=== PATIENT | male | born 1965 | race Caucasian/White ===

== ENCOUNTER 2020-10-12 08:23 | Emergency (ER) | payer BC ==
--- NOTE | 2020-10-12 08:58 | EDM.PDOC ---
ED HPI GENERAL MEDICAL PROBLEM - General Chief Complaint: Chest Pain Stated Complaint: CHEST PAIN /LIGHT HEADED Time Seen by Provider: 10/12/20 08:53 Source of Information: Reports: Patient History Limitations: Reports: No Limitations - History of Present Illness INITIAL COMMENTS - FREE TEXT/NARRATIVE: 55-year-old male attends the ED complaining of diffuse anterior chest pains which he is able to point out with his fingertips indicating that it is in the chest wall. No associated shortness of breath. He did have some associated dizziness lightheadedness but no real syncopal event. He has ate and drank fairly well this morning. He takes no medications. He is quite anxious. Denies cough sputum production fever chills nausea or vomiting. No concerns about COVID-19 illness. Blood pressure has been running high for the last several years and is considered borderline hypertensive. He is a non-smoker. Onset: Today, Sudden Onset Date: 10/12/20 Onset Time: 07:40 Duration: Minutes: Location: Reports: Generalized (Lightheaded mildly dizzy mildly weak.) Quality: Reports: Other Severity: Mild (No pain.) Improves with: Reports: None Worsens with: Reports: None Context: Denies: Activity, Exercise, Lifting, Sick Contact, Trauma, Other Associated Symptoms: Reports: Shortness of Breath. Denies: No Other Symptoms, Confusion, Chest Pain, Cough, cough w sputum, Diaphoresis, Fever/Chills, Headaches, Loss of Appetite, Malaise, Nausea/Vomiting, Rash, Seizure, Syncope, Weakness Treatments REGULATORY SERVICES CONSULTANT: Reports: Other (see below) (Subjective shortness of breath this morning. None.) Chest Pain Score (Numeric/FACES): 2 - Related Data Allergies Allergy/AdvReac Type Severity Reaction Status Date / Time No Known Allergies Allergy Verified 10/12/20 08:32 Home Meds: Home Meds Multivitamin with Minerals [Multiple Vitamin] 1 tab PO DAILY 10/12/20 [History] Past Medical History HEENT History: Reports: Impaired Vision Other HEENT History: wears eyeglasses. Cardiovascular History: Reports: Other (See Below) Other Cardiovascular History: states is "pre hypertension." Genitourinary History: Reports: Renal Calculus Neurological History: Reports: Headaches, Chronic (Frequent headaches. 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 and wondered if his occipital prominences were normal.) Psychiatric History: Reports: Anxiety - Infectious Disease History Infectious Disease History: Reports: Chicken Pox Social & Family History - Tobacco Use Tobacco Use Status *Q: Never Tobacco User Second Hand Smoke Exposure: No - Caffeine Use Caffeine Use: Reports: Coffee - Recreational Drug Use Recreational Drug Use: No - Living Situation & Occupation Occupation: Employed ED ROS GENERAL - Review of Systems Review Of Systems: See Below Constitutional: Denies: Fever, Chills, Malaise, Weakness, Fatigue, Decreased Appetite, Weight Loss HEENT: Reports: Glasses Respiratory: Reports: Shortness of Breath. Denies: Wheezing, Pleuritic Chest Pain, Cough, Sputum Cardiovascular: Reports: Chest Pain (Subjective dyspnea this morning.), Blood Pressure Problem ( [place] chest pains for many years seem to be a little worse today.), Lightheadedness. Denies: Claudication, Dyspnea on Exertion, Edema, Orthopnea ( He has been told he has borderline hypertension in the past.), Palpitations, PND, Syncope Endocrine: Reports: No Symptoms GI/Abdominal: Reports: Constipation (LC might be constipated.) : Reports: No Symptoms Musculoskeletal: Reports: No Symptoms Skin: Reports: No Symptoms Neurological: Reports: Headache (Gets a lot of headaches) Psychiatric: Reports: Anxiety Hematologic/Lymphatic: Reports: No Symptoms Immunologic: Reports: No Symptoms ED EXAM, GENERAL - Physical Exam Exam: See Below Exam Limited By: No Limitations General Appearance: Alert, WD/WN, Anxious, Mild Distress, Other (Temperature is 36.8 with a heart rate of 80 and sinus respiratory to is 12 with O2 sats of 99% room air BP initially is mildly elevated 142/90. Subsequently it has come down to 139/91) Eye Exam: Bilateral Eye: Normal Inspection (No scleral icterus or blepharal pallor.), PERRL Throat/Mouth: Normal Inspection, Normal Lips, Normal Teeth, Normal Gums, Normal Oropharynx Head: Atraumatic, Normocephalic, Sinus Tenderness Neck: Normal Inspection, Supple, Non-Tender, Full Range of Motion. No: Carotid Bruit, Lymphadenopathy (L), Lymphadenopathy (R), Thyromegaly Respiratory/Chest: No Respiratory Distress, Lungs Clear, Normal Breath Sounds, No Accessory Muscle Use Cardiovascular: Normal Peripheral Pulses, Regular Rate, Rhythm, No Edema, No Gallop, No Murmur, No Rub Peripheral Pulses: 3+: Carotid (L), Carotid (R), Posterior Tibial (L), Posterior Tibial (R), Dorsalis Pedis (L), Dorsalis Pedis (R) GI/Abdominal: Normal Bowel Sounds, Soft, Non-Tender, No Organomegaly, No Abnormal Bruit, No Mass, Pelvis Stable, Other Back Exam: Normal Inspection, Full Range of Motion. No: CVA Tenderness (L), CVA Tenderness (R) Extremities: Normal Inspection, Normal Range of Motion, Non-Tender, No Pedal Edema Neurological: Alert, Oriented, CN II-XII Intact, Normal Cognition, Normal Gait, Normal Reflexes Psychiatric: Anxious Skin Exam: Warm, Dry, Intact (Moderately anxious.), Normal Color, No Rash #1 Interpretation EKG Date: 10/12/20 Time: 08:57 Rate (Beats/Min): 70 [place]: Normal P-Wave: Enlarged (Consider left atrial hypertrophy pattern) QRS: Other (Early R wave transition consider septal hypertrophy pattern) ST-T: Other (T wave flattening aVF nonspecific finding) QT: Normal EKG Interpretation Comments: Borderline ECG Course - Vital Signs Last Recorded V/S: Last Vital Signs Temp 36.8 C 10/12/20 10:20 Pulse 72 10/12/20 10:20 Resp 20 10/12/20 10:20 BP 126/89 10/12/20 10:20 Pulse Ox 97 10/12/20 10:20 - Orders/Labs/Meds Labs: Laboratory Tests 10/12/20 10/12/20 Range/Units 09:10 09:11 WBC 4.24 (4.23-9.07) K/mm3 RBC 5.07 (4.63-6.08) M/mm3 Hgb 15.8 (13.7-17.5) gm/dl Hct 46.2 (40.1-51.0) % MCV 91.1 (79.0-92.2) fl MCH 31.2 (25.7-32.2) pg MCHC 34.2 (32.2-35.5) g/dl RDW Std Deviation 41.9 (35.1-43.9) fL Plt Count 188 (163-337) K/mm3 MPV 9.6 (9.4-12.3) fl Neut % (Auto) 69.0 H (34.0-67.9) % Lymph % (Auto) 22.2 (21.8-53.1) % [place] % (Auto) 6.4 (5.3-12.2) % Eos % (Auto) 1.7 (0.8-7.0) Baso % (Auto) 0.5 (0.1-1.2) % Neut # (Auto) 2.93 (1.78-5.38) K/mm3 Lymph # (Auto) 0.94 L (1.32-3.57) K/mm3 [place] # (Auto) 0.27 L (0.30-0.82) K/mm3 Eos # (Auto) 0.07 (0.04-0.54) K/mm3 Baso # (Auto) 0.02 (0.01-0.08) K/mm3 Sodium 142 (136-145) mEq/L Potassium 3.8 (3.5-5.1) mEq/L Chloride 108 H (98-107) mEq/L Carbon Dioxide 24 (21-32) mEq/L Anion Gap 13.8 (5-15) BUN 17 (7-18) mg/dL Creatinine 1.0 (0.7-1.3) mg/dL Est Cr Clr Drug Dosing 93.22 mL/min Estimated GFR (MDRD) > 60 (>60) mL/min BUN/Creatinine Ratio 17.0 (14-18) Glucose 103 (74-106) mg/dL Calcium 8.9 (8.5-10.1) mg/dL Magnesium 2.0 (1.8-2.4) mg/dl Total Bilirubin 0.4 (0.2-1.0) mg/dL AST 19 (15-37) U/L ALT 33 (16-63) U/L Alkaline Phosphatase 66 (46-116) U/L Troponin I < 0.017 (0.00-0.056) ng/mL C-Reactive Protein 0.2 (<1.0) mg/dL Total Protein 7.1 (6.4-8.2) g/dl Albumin 3.9 (3.4-5.0) g/dl Globulin 3.2 gm/dL Albumin/Globulin Ratio 1.2 (1-2) TSH 3rd Generation 0.461 (0.358-3.74) uIU/mL - Radiology Interpretation Free Text/Narrative:: 55-year-old male presents to the ED complaining of feeling lightheaded dizzy and just not right this morning. He has taken some chocolate 5 inch and some other candies this morning. Did not have a formal meal. Has drank lots of water and had a cup of coffee. He reports he started 6 different medications from [facility] which include mostly vitamins but he has not taken them yet today usually takes them at noon hour. Concerned about daily headaches. Denies shortness of breath although subjectively he feels mildly dyspneic this morning. [place] lightheaded dizzy but not enough to be presyncopal. Examination is completely normal. The patient is quite anxious on exam. Plan chest x-ray KUB routine labs and a ECG to be done. I do not anticipate any pathology. - Re-Assessments/Exams Free Text/Narrative Re-Assessment/Exam: 10/12/20 10:06 chest x-ray has been completed portably. Mild hyperinflated lung sims. Cardiac silhouette is within normal limits. No pleural effusions no pneumothorax lungs are otherwise clear. KUB reveals mild increased stool throughout the distal transverse colon splenic flexure and descending colon. Rectal vault is empty. Mild constipation evident. No bowel obstruction. 10/12/20 10:09 Total white count is 4.24 auto differential shows 69% neutrophils. Hemoglobin 15.8 with a hematocrit of 46.2. Platelet count 188,000. Sodium 142 with a potassium of 3.8. Chloride 108 with a bicarb of 24. Anion gap is 13.8. BUN is 17 with a creatinine of 1.0 and a GFR greater than 60. Glucose 103. Calcium 8.9. Magnesium 2.0. Liver function normal. Troponin I is less than 0.017. C-reactive protein less than 0.2. Total protein 7.1 with an albumin fraction of 3.9. TSH is normal at 0.461. Patient was advised of the above findings. Reassured that there is no evidence of heart related illness. He will discontinue his 6 different vitamins and supplements that he started a week ago from [facility] as I feel they are likely contributing to his current problems. He states he has not felt hungry suggesting some of them may be laced with a low-grade amphetamine or stimulant. Departure - Departure Time of Disposition: 10:35 Disposition: Home, Self-Care 01 Condition: Fair Clinical Impression: Nonspecific chest pain, Non-cardiac chest pain Instructions: Nonspecific Chest Pain, Adult, [id number] Referrals: PCP,None [Primary Care Provider] - Forms: ED Department Discharge Additional Instructions: Evaluation carried out in the emergency room this morning in regards to generally not feeling well with a combination of diffuse chest pains feeling lightheaded dizzy and ill. No associated fever chills nausea vomiting or diarrhea. Examination did not reveal any abnormalities. ECG or heart tracing was normal. Blood pressure initially was high but did come down to near normal at the time of discharge. Chest wall discomfort appreciated by you in multiple areas. Chest x-ray was clear with no signs of any abnormalities. Blood test also revealed no evidence of heart related illness or blood clots in the lungs. In fact no abnormalities were appreciated on complete lab testing. I suspect some of your symptoms may well be due to the vitamins and other supplements you have been taking from [facility] over the last several days. I would agree with discontinuing them as I think they may be contributing to the way you are feeling. At this time there is certainly no evidence of concern for heart related illness. May return to work with no restrictions. Sepsis Event Note (ED) - Evaluation Sepsis Screening Result: No Definite Risk - Focused Exam Vital Signs: Vital Signs Temp Pulse Resp BP Pulse Ox 10/12/20 10:20 36.8 C 72 20 126/89 97 10/12/20 08:25 36.8 C 80 12 142/90 H 99
--- NOTE | 2020-10-12 09:53 | CR ---
Abdomen: Supine view of the abdomen was obtained. Bowel gas pattern appears normal. Minimal calcifications within the pelvis most likely due to phleboliths. Bony structures are within normal limits for the patient's age. Impression: 1. Nothing acute is seen on supine abdominal x-ray. Diagnostic code #1
--- NOTE | 2020-10-12 10:48 | CR ---
Chest: Portable view of the chest was obtained. Comparison: No prior chest imaging is available. Heart size and mediastinum are normal. Lungs are clear with no acute parenchymal change. Bony structures appear grossly intact. Impression: 1. Nothing acute is appreciated on portable chest x-ray. Diagnostic code #1
== END 2020-10-12 10:47 | disposition home or self-care (01) ==
LOC: JD.ED 08:23
DX: R07.89 Other chest pain (principal)
CPT/HCPCS: 36415; 71045; 71045-26; 74018; 74018-26; 80053; 83735; 84443; 84484; 85025; 86140; 93005; 93010; 99284; 99285-25